=== PATIENT | male | born 1990 | race Caucasian/White ===

== ENCOUNTER 2016-10-11 05:34 | Day surgery (SDC) | payer BC ==
[~2016-10-11] VITALS: Ht 185.4 cm; Wt 79.1 kg
[2016-10-11 06:11] VITALS: BP 109/53; PULSE 53; TEMP 98.1
[2016-10-11 08:57] VITALS: TEMP 98
[2016-10-11 09:05] VITALS: BP 106/44; PULSE 48
[2016-10-11 09:20] VITALS: BP 121/50; PULSE 59
[2016-10-11] MEDS ORDERED: NORCO 325 MG-51 TAB PO (09:31)
[2016-10-11 09:35] VITALS: BP 110/56; PULSE 47
[2016-10-11 09:50] VITALS: BP 103/46; PULSE 50
== END 2016-10-11 10:40 | disposition home or self-care (01) ==
LOC: SDCO 05:34
DX: K40.91 Unilateral inguinal hernia, without obstruction or gangrene, recurrent (principal)
CPT/HCPCS: A4315; C1781; J0690; J1100; J1170; J1885; J2175; J2250; J2405; J2704; J2710; J7120